=== PATIENT | male | born 1990 | race Two or more races ===

== ENCOUNTER 2018-07-13 10:55 | Inpatient (IN) | payer MEDICAID ==
[~2018-07-13] VITALS: Ht 175.3 cm; Wt 68.9 kg
[2018-07-13 10:58] VITALS: Ht 175.3 cm; Wt 68.9 kg
[2018-07-13 11:27] LABS: BASOPHIL % 0.3 % (0-2); PLATELET COUNT 287 x10^3mcL (130-400); RED CELL DISTRIBUTION WIDTH 12.4 % (11.5-14.5)
[2018-07-13 11:35] LABS: CALCIUM 9.2 mg/dL (8.5-10.1); CARBON DIOXIDE 30.8 mmol/L (21-32); CHLORIDE SERUM 102 mmol/L (98-107); CREATININE SERUM 0.7 mg/dL (0.7-1.3); GFR1 > 60 mL/min; GLUCOSE SERUM 103 mg/dL (74-106); POTASSIUM SERUM 4.3 mmol/L (3.5-5.1); SODIUM SERUM 140 mmol/L (136-145)
[2018-07-13 11:48] LABS: ALBUMIN 4.9 g/dL (3.4-5.0); ALKALINE PHOSPHATASE 61 U/L (46-116); ALT/SGPT 20 U/L (16-63); AST/SGOT 15 U/L (15-37); BILIRUBIN TOTAL 0.57 mg/dL (0.20-1.00); FREE T4 1.05 ng/dL (0.76-1.46); TOTAL PROTEIN, SERUM 8.2 g/dL (6.4-8.2)
[2018-07-13 14:27] LABS: AMPHETAMINE QUAL UR NONE DETECTED (See below)
[2018-07-14 11:20] VITALS: BP 133/86
[2018-07-14 13:55] LABS: urine erythrocyte NEGATIVE (NEGATIVE)
[2018-07-14 13:57] LABS: microscopic required? YES
[2018-07-14 17:31] VITALS: BP 115/85
[2018-07-14 20:31] VITALS: BP 113/73
[2018-07-15 06:31] LABS: CALCIUM 9.5 mg/dL (8.5-10.1); CHLORIDE SERUM 103 mmol/L (98-107); CREATININE SERUM 0.7 mg/dL (0.7-1.3); GFR1 > 60 mL/min; GLUCOSE SERUM 87 mg/dL (74-106); POTASSIUM SERUM 4.1 mmol/L (3.5-5.1); SODIUM SERUM 140 mmol/L (136-145)
[2018-07-15 06:40] VITALS: BP 120/85
[2018-07-15 06:45] LABS: BASOPHIL % 0.5 % (0-2); PLATELET COUNT 241 x10^3mcL (130-400); RED CELL DISTRIBUTION WIDTH 12.7 % (11.5-14.5)
[2018-07-15 08:45] VITALS: BP 137/98
[2018-07-15 17:37] VITALS: BP 136/89
[2018-07-15 20:45] VITALS: BP 113/80
[2018-07-16 05:36] VITALS: BP 119/88
[2018-07-16 09:59] VITALS: BP 121/80
[2018-07-16 17:53] VITALS: BP 140/96
[2018-07-16 21:00] VITALS: BP 122/89
[2018-07-17 06:22] VITALS: BP 117/76
[2018-07-17 11:58] VITALS: BP 117/76
[2018-07-17] MEDS ORDERED: LEXAPRO10 MG PO (13:27)
== END 2018-07-17 15:00 | disposition home or self-care (01) | DRG 751 ==
LOC: ED 10:55 → MU 07-14 09:12
PROVIDERS: Emergency Medicine; ADMIT Internal Medicine
DX: F32.3 Major depressive disorder, single episode, severe with psychotic features (principal); R45.851 Suicidal ideations; S60.812A Abrasion of left wrist, initial encounter; F12.10 Cannabis abuse, uncomplicated; Z91.5 Personal history of self-harm; X78.1XXA Intentional self-harm by knife, initial encounter; Y93.89 Activity, other specified; Y92.89 Other specified places as the place of occurrence of the external cause; Z68.22 Body mass index [BMI] 22.0-22.9, adult
CPT/HCPCS: 84439; G0480